=== PATIENT | female | born 1970 | race Two or more races ===

== ENCOUNTER 2023-05-30 15:45 | Emergency (ER) | payer OTHER, MEDICAID ==
[~2023-05-30] VITALS: Ht 172.7 cm; Wt 106.4 kg
[2023-05-30] MEDS ORDERED: methylPREDNISolone SOD SUCC 125 MG/2 ML VL IM ONE (17:45)
[2023-05-30] MEDS ORDERED: cefTRIAXone SOD 1,000 MG VL IM ONE (17:45)
[2023-05-30] MEDS ORDERED: AUG875T PO (17:48)
[2023-05-30] MEDS ORDERED: PRED20TA2 PO (17:48)
[2023-05-30] MEDS ORDERED: BENZ200C64 PO (17:48)
[2023-05-30 18:07] VITALS: BP 113/50; PULSE 61; RESP 16; TEMP 98.9; O2SAT 98
== END 2023-05-30 18:08 | disposition home or self-care (01) ==
LOC: ER 15:45
DX: J01.90 Acute sinusitis, unspecified (principal); J20.9 Acute bronchitis, unspecified; R07.89 Other chest pain
CPT/HCPCS: 71046; 96372; 99284; J0696; J2930